=== PATIENT | female | born 1975 | race Caucasian/White ===

== ENCOUNTER 2020-12-21 04:26 | Inpatient (IN) | payer OTHER ==
[2020-12-20 11:42] VITALS: BMI 26.6
[2020-12-21] MEDS ORDERED: BUPIVACAINE HCL/PF 0.5% (5MG/ML) 10 ML VIAL ONE (08:46)
[2020-12-21] MEDS ORDERED: BUPIVACAINE LIPOSOME/PF (EXPAREL) 266 MG/20 ML VIAL ONE (08:46)
[2020-12-21] MEDS ORDERED: MIDAZOLAM HCL 2 MG/2 ML SINGLE DOSE VIAL ONE ×2 (08:47)
[2020-12-21] MEDS ORDERED: ONDANSETRON 4 MG/2 ML VIAL IVPUSH PRN (08:52)
[2020-12-21] MEDS ORDERED: oxyCODONE HCL 5 MG TABLET PO PRN ×3 (08:52→10:32)
[2020-12-21] MEDS ORDERED: IBUPROFEN 800 MG/8 ML IJ IVPB PRN ×2 (08:52→08:55)
[2020-12-21] MEDS ORDERED: LIDOCAINE HCL/PF 2% SDV 5ML VIAL ONE (08:58)
[2020-12-21] MEDS ORDERED: DEXAMETHASONE SOD PHOSPHATE 4 MG/1 ML VIAL ONE (08:58)
[2020-12-21] MEDS ORDERED: ROCURONIUM BROMIDE 50 MG/5 ML SYRINGE ONE (08:59)
[2020-12-21] MEDS ORDERED: PROPOFOL 20 ML ONE (08:59)
[2020-12-21] MEDS ORDERED: ceFAZolin SODIUM 1 GM VIAL ONE (10:08)
[2020-12-21] MEDS ORDERED: ceFAZolin SODIUM 1 GM VIAL IVPB ONE (10:09)
[2020-12-21] MEDS ORDERED: HYDROmorphone HCl 2 MG/ML VIAL ONE (10:19)
[2020-12-21] MEDS ORDERED: LACTATED RINGERS SOLUTION 1,000 ML IV SCH (10:30)
[2020-12-21] MEDS ORDERED: HYDROmorphone HCl 2 MG/ML VIAL IVPB PRN (10:32)
[2020-12-21] MEDS ORDERED: NEOSTIGMINE METHYLSULFATE 0.5 MG/ML - 10 ML MDV ONE (11:11)
[2020-12-21] MEDS ORDERED: GLYCOPYRROLATE 0.2 MG/1 ML VIAL ONE (11:12)
[2020-12-21] MEDS ORDERED: KETOROLAC TROMETHAMINE 30 MG/1 ML VIAL ONE (11:13)
[2020-12-21] MEDS: ACETAMINOPHEN 1000 MG/100 ML VIAL IVPB SCH ×4 (13:30→23:25)
[2020-12-21] MEDS: CEFAZOLIN 2 GM in DEXTROSE 5%-WATER - 100 ML IVPB SCH ×2 (14:51→18:08)
[2020-12-21] MEDS: ELECTROLYTE-148 SOLN 1,000 ML IV SCH (21:07)
[2020-12-21] MEDS: oxyCODONE HCL 10 MG SUSTAINED ACTING TABLET PO SCH (22:07)
[2020-12-22] MEDS ORDERED: CEFAZOLIN 2 GM in DEXTROSE 5%-WATER - 100 ML IVPB SCH (02:00)
[2020-12-22] MEDS: ACETAMINOPHEN 1000 MG/100 ML VIAL IVPB SCH ×2 (04:53→11:06)
[2020-12-22 06:34] LABS: HEMATOCRIT 36.2 % (32.4-45.2); HEMOGLOBIN 12.4 GM/dL (10.7-15.3); MCHC 34.3 g/dl (32.0-36.0); MEAN CELL VOLUME 90.3 fl (80-96); MEAN PLT VOLUME 9.7 fl (7.5-11.1); PLATELET COUNT 174 10^3/uL (134-434); RBC 4.01 M/mm3 (3.60-5.2); RDW 12.6 % (11.6-15.6); WHITE BLOOD COUNT 7.2 K/mm3 (4.0-10.0)
[2020-12-22] MEDS: oxyCODONE HCL 10 MG SUSTAINED ACTING TABLET PO SCH ×2 (09:42→22:26)
[2020-12-22] MEDS ORDERED: BISACODYL 10 MG SUPP.RECT PR ONE (11:15)
[2020-12-22] MEDS: DOCUSATE SODIUM 100 MG CAPSULE (FP) PO PRN ×2 (13:22→21:25)
[2020-12-22] MEDS: IBUPROFEN 600 MG TABLET (FP) PO PRN (16:54)
[2020-12-22] MEDS: ACETAMINOPHEN 325 MG TABLET (FP) PO PRN (21:23)
[2020-12-23] MEDS: IBUPROFEN 600 MG TABLET (FP) PO PRN ×2 (02:58→12:47)
[2020-12-23] MEDS: ACETAMINOPHEN 325 MG TABLET (FP) PO PRN (08:57)
[2020-12-23] MEDS: ELECTROLYTE-148 SOLN 1,000 ML IV SCH (09:26)
[2020-12-23 09:48] VITALS: BP 114/70; PULSE 89; TEMP 98.8
[2020-12-23] MEDS: oxyCODONE HCL 10 MG SUSTAINED ACTING TABLET PO SCH (10:08)
== END 2020-12-23 14:05 | disposition home or self-care (01) | DRG 743 ==
LOC: J2C 04:26 → EDSTATUS 09:00 → J3W 13:59
PROVIDERS: ADMIT Obstetrics & Gynecology; ATTEND Obstetrics & Gynecology
PROC: 0UT70ZZ Resection of Bilateral Fallopian Tubes, Open Approach (ICD-10-PCS; 2020-12-21)
PROC: 0USG0ZZ Reposition Vagina, Open Approach (ICD-10-PCS; 2020-12-21)
PROC: 0UT90ZL Resection of Uterus, Supracervical, Open Approach (ICD-10-PCS; principal; 2020-12-21 09:00)
DX: D25.9 Leiomyoma of uterus, unspecified (principal); N92.0 Excessive and frequent menstruation with regular cycle; N83.8 Other noninflammatory disorders of ovary, fallopian tube and broad ligament; R10.11 Right upper quadrant pain
CPT/HCPCS: 36415; 81025; 85027; 86850; 86900; 86901; 86922; 88307-TC; 94010; 94760; J0131